=== PATIENT | female | born 1990 | race Caucasian/White ===

== ENCOUNTER 2017-06-21 19:34 | Emergency (ER) | payer OTHER ==
[2017-06-21 21:33] LABS: URINE BLOOD (Dip) POC Negative (NEGATIVE); URINE GLUCOSE (Dip) POC Negative (NEGATIVE); URINE KETONES (Dip) POC Negative (NEGATIVE); URINE LEUKOCYTE EST (Dip) POC Negative (NEGATIVE); URINE NITRITE (Dip) POC Negative (NEGATIVE); URINE TOTAL PROTEIN POC Negative (NEGATIVE)
[2017-06-21] MEDS: HYDROCODONE/APAP (5/325) TAB PO (21:41)
[2017-06-21] MEDS: ONDANSETRON (ODT) 4 MG TAB ODT (21:41)
== END 2017-06-21 22:58 | disposition home or self-care (01) ==
LOC: FTE 19:34
DX: R51 Headache (principal); R20.0 Anesthesia of skin
CPT/HCPCS: 70450; 81003; 81025; 99284-25